=== PATIENT | female | born 1970 | race Caucasian/White ===

== ENCOUNTER → 2022-02-26 | Outpatient (CLI) | payer OTHER ==
[~2022-02-26] MED LIST: BREO ELLIPTA 21 EACH INH; BUPROPION XL150 MG PO; CALCIUM + VITA1 EACH PO; CALCIUM CITRAT200 MG PO; CELEBREX 200MG200 MG PO; CETIRIZINE HCL10 MG PO; CHANTIX1 EACH PO; CYCLOBENZAPRINE10 MG PO; FAMOTIDINE20 MG PO; FISH OIL 1,0001 EAC3 PO; FLONASE 0.05% N16 GM; FORTAMET500 MG PO; IRON325 M1 PO; LOPID600 MG PO; METFORMIN HCL500 M2 PO; NEURONTIN300 MG PO; NICOTINE PATCH TOP; NORCO 5-325 TA1 EACH PO; OZEMPIC0.25 MG/0. SQ; TRAZODONE HCL50 MG PO; VITAMIN D21250 MCG PO
[2022-02-26 10:08] LABS: HEMOGLOBIN 13.2 gm/dl (12.3-15.3); RED BLOOD COUNT 4.62 M/UL (4.00-5.10)
== END ==
LOC: OPSV2 09:33
PROVIDERS: Orthopaedic Surgery
DX: Z01.812 Encounter for preprocedural laboratory examination (principal); G56.01 Carpal tunnel syndrome, right upper limb
CPT/HCPCS: 36415; 80048; 85025

== ENCOUNTER → 2022-03-05 | Day surgery (SDC) | payer OTHER ==
[~2022-03-05] MED LIST changes: +HYDROCODON-ACE1 EAC2 PO
== END | disposition home or self-care (01) ==
LOC: OR 07:09
DX: G56.01 Carpal tunnel syndrome, right upper limb (principal); M65.311 Trigger thumb, right thumb; M17.10 Unilateral primary osteoarthritis, unspecified knee; M25.469 Effusion, unspecified knee; M25.561 Pain in right knee; E78.5 Hyperlipidemia, unspecified; K21.9 Gastro-esophageal reflux disease without esophagitis; E07.9 Disorder of thyroid, unspecified; E11.9 Type 2 diabetes mellitus without complications; Z79.82 Long term (current) use of aspirin; Z79.84 Long term (current) use of oral hypoglycemic drugs; Z79.899 Other long term (current) drug therapy; Z72.89 Other problems related to lifestyle; Z87.891 Personal history of nicotine dependence
CPT/HCPCS: 82962; J0690; J1100; J1885; J2001; J2250; J2405; J2704; J3010; J7030

== ENCOUNTER → 2022-06-03 | Outpatient (CLI) | payer OTHER ==
[~2022-06-03] MED LIST changes: +CITRUS CALCIUM1 EAC1 PO; +DITROPAN XL10 MG PO
[2022-06-03 10:32] LABS: HEMOGLOBIN 12.4 gm/dl (12.3-15.3); RED BLOOD COUNT 4.2 M/UL (4.00-5.10); WHITE BLOOD COUNT 7.4 K/UL (4.5-11.0)
[2022-06-03 11:04] LABS: BUN/CREATININE RATIO 18 (0-10)
== END ==
LOC: OPSV2 09:15 → EDSTATUS 10:00
PROVIDERS: Orthopaedic Surgery
DX: Z01.818 Encounter for other preprocedural examination (principal); M17.11 Unilateral primary osteoarthritis, right knee
CPT/HCPCS: 71046; 80048; 83036; 85025; 93005

== ENCOUNTER → 2022-06-22 | Outpatient (CLI) | payer OTHER ==
[~2022-06-22] MED LIST changes: +ASPIR-TRIN325 MG PO; +HYDROCODON-ACE1 EAC6 PO
[2022-06-22 12:38] LABS: BUN/CREATININE RATIO 25 (0-10)
== END ==
LOC: LAB 11:49
PROVIDERS: Orthopaedic Surgery
DX: Z01.812 Encounter for preprocedural laboratory examination (principal)
CPT/HCPCS: 36415; 80048; 86850; 86900; 86901

== ENCOUNTER → 2022-06-23 | Day surgery (SDC) | payer OTHER ==
[~2022-06-23] VITALS: Ht 172.7 cm; Wt 86.2 kg
== END | disposition home or self-care (01) ==
LOC: OR 07:05
DX: M17.11 Unilateral primary osteoarthritis, right knee (principal); S83.241A Other tear of medial meniscus, current injury, right knee, initial encounter; G89.18 Other acute postprocedural pain; E10.9 Type 1 diabetes mellitus without complications; E78.5 Hyperlipidemia, unspecified; Z87.891 Personal history of nicotine dependence
CPT/HCPCS: 73560; 76000; 82962; 97116; 97161; 97166; C1713; C1776; J0690; J1100; J1170; J2250; J2274; J2405; J2704; J2795; J3010